=== PATIENT | female | born 1945 | race Caucasian/White ===

== ENCOUNTER 2024-01-01 14:12 | Inpatient (IN) | payer MEDICARE, OTHER ==
[~2024-01-01] VITALS: Ht 162.6 cm; Wt 72.7 kg
[2024-01-01] VITALS (7 sets, daily range): BP systolic 103; BP diastolic 66; PULSE 75–140; RESP 16–36; TEMP 98.3; O2SAT 97–100
[2024-01-01] MEDS ORDERED: cefTRIAXone 1,000 MG VIAL ONE (15:03)
[2024-01-01 15:34] LABS: APPEARANCE,URINE SLIGHTLY HAZY (CLEAR); BILIRUBIN,URINE NEGATIVE (NEGATIVE); BLOOD, URINE 2+ (NEGATIVE); COLOR,URINE YELLOW (YELLOW); LEUKOCYTE ESTERASE ,URINE TRACE (NEGATIVE); NITRITE, URINE NEGATIVE (NEGATIVE); PROTEIN,URINE 2+ (NEGATIVE); UGLUCOSE NEGATIVE (NEGATIVE); UROBILINOGEN,URINE 0.2 EU/dL (0.2 - 1)
[2024-01-01 15:36] LABS: BACTERIA,URINE 1+ /HPF (None Seen); MUCUS,URINE None Seen /LPF (None Seen); SQUAMOUS EPITHELIAL CELL,UR 0-3 (FEW) /LPF (0-3 (FEW)); WBC,URINE 0-5 /HPF (0-5)
[2024-01-01] MEDS: NACL 0.9% 2,000 ML IV ONE (16:28)
[2024-01-01 16:36] LABS: BASOPHILS % (AUTO) 0.2 % (0.0-2.0); HEMATOCRIT 28.3 % (36-48); HEMOGLOBIN 8.4 g/dL (12.0-16.0); LYMPHOCYTES # (AUTO) 0.6 K/uL (2.5-16.5); LYMPHOCYTES % (AUTO) 3.5 % (20.5-51.1); MEAN CORPUSCULAR HEMOGLOBIN 25 pg (27-31); MEAN CORPUSCULAR HGB CONC 30 g/dL (33-37); MEAN CORPUSCULAR VOLUME 83.8 fL (80-94); MONOCYTES # (AUTO) 1.4 K/uL (0.8-1.0); MONOCYTES % (AUTO) 7.7 % (1.7-9.3); NEUTROPHILS # (AUTO) 15.7 K/uL (1.8-7.7); NEUTROPHILS % (AUTO) 88.6 % (42.2-75.2); PLATELET COUNT (AUTO) 418 K/uL (140-450); RED BLOOD CELL COUNT(AUTO) 3.38 MIL/uL (4.20-5.40); RED CELL DISTRIBUTION WIDTH 20.8 % (11.6-13.7); WHITE BLOOD COUNT (AUTO) 17.8 K/uL (4.8-10.8)
[2024-01-01 17:09] LABS: ANION GAP 20.6 (8-16); CALCIUM 9.4 mg/dL (8.5-10.1); CARBON DIOXIDE 21.6 mmol/L (21-32); CHLORIDE 101 mmol/L (98-107); CREATININE 1.8 mg/dL (0.6-1.3); GLUCOSE 333 mg/dL (74-106); SODIUM SERUM 137 mmol/L (136-145); UREA NITROGEN, BLOOD 51 mg/dL (7-18)
[2024-01-01 17:10] LABS: INR 1.34 (0.8-1.2); PARTIAL THROMBOPLASTIN TIME 32.5 secs (22-35.6); PROTHROMBIN TIME 13.9 secs (10.8-13.4)
[2024-01-01 17:12] LABS: POTASSIUM 6.2 mmol/L (3.5-5.1)
[2024-01-01 17:18] LABS: ALANINE AMINOTRANSFERASE 46 U/L (12-78); ALBUMIN 1.9 g/dL (3.4-5.0); ALKALINE PHOSPHATASE 124 U/L (50-136); ASPARTATE AMINOTRANSFERASE 99 U/L (15-37); BILIRUBIN,DIRECT 0.1 mg/dL (0.0-0.3); CREATINE KINASE, TOTAL 101 U/L (26-192); TOTAL BILIRUBIN 0.3 mg/dL (0.0-1.0); TOTAL PROTEIN, SERUM 8.4 g/dL (6.4-8.2)
[2024-01-01] MEDS ORDERED: ONDANSETRON 4 MG/2 ML VIAL IVP PRN (18:30)
[2024-01-01] MEDS ORDERED: DEXTROSE 50% 50 ML SYR IVP ONE (18:31)
[2024-01-01] MEDS ORDERED: CALCIUM CHLORIDE 10% 100 MG/ML SYR IVP ONE (18:31)
[2024-01-01] MEDS ORDERED: FUROSEMIDE 40 MG/4 ML VIAL IVP ONE (18:33)
[2024-01-01] MEDS ORDERED: SODIUM BICARBONATE 8.4% PFS 50 MEQ/50 ML SYR IVP ONE (18:34)
[2024-01-01] MEDS ORDERED: DEXTROSE 50% 50 ML SYR IVP PRN (18:35)
[2024-01-01] MEDS: CALCIUM CHLORIDE 10% 100 MG/ML SYR IVP ONE (18:43)
[2024-01-01] MEDS: SODIUM BICARBONATE 8.4% PFS 50 MEQ/50 ML SYR IVP ONE (18:47)
[2024-01-01] MEDS: DEXTROSE 50% 50 ML SYR IVP ONE (18:59)
[2024-01-01] MEDS: FUROSEMIDE 40 MG/4 ML VIAL IVP ONE (19:06)
[2024-01-01] MEDS: NACL 0.9% 1,000 ML IV SCH (19:10)
[2024-01-01] MEDS: INSULIN REGULAR, HUMAN 100 UNIT/ML VIAL IVP ONE (19:17)
[2024-01-01] MEDS: ALBUTEROL 0.083% 2.5 MG/3 ML NEBU INH ONE (19:47)
[2024-01-01] MEDS: ALBUTEROL SULFATE/IPRATROPIU 3 ML SOL IH SCH (19:47)
[2024-01-01] MEDS: PIPERACILLIN/TAZOBACTAM 3.375 GM in DEXTROSE 5% 50 ML IV SCH (22:00)
[2024-01-01] MEDS: BLOOD GLUCOSE MONITORING 1 DEV DEV FS SCH (22:00)
[2024-01-01] MEDS ORDERED: PIPERACILLIN/TAZOBACTAM 3.375 GM VIAL IV ONE (22:01)
[2024-01-01] MEDS: INSULIN LISPRO SLIDING SCALE 100 UNITS/ML VIAL SUBQ PRN (22:22)
[2024-01-01] MEDS ORDERED: FUROSEMIDE 40 MG/4 ML VIAL IVP SCH (22:55)
[2024-01-02] VITALS (14 sets, daily range): BP systolic 120–134; BP diastolic 57–62; PULSE 91–133; RESP 16–24; TEMP 96.7–99.2; O2SAT 99–100
[2024-01-02] MEDS: SODIUM ZIRCONIUM CYCLOSILICATE 10 GM POWD.PACK PO ONE (00:08)
[2024-01-02] MEDS: PIPERACILLIN/TAZOBACTAM 3.375 GM VIAL IV ONE (05:21)
[2024-01-02] MEDS ORDERED: AMIO100T3 GT (06:52)
[2024-01-02] MEDS ORDERED: DILT30TA18 GT (06:52)
[2024-01-02] MEDS ORDERED: INSU100S22 SUBQ (06:52)
[2024-01-02] MEDS ORDERED: METO25TE2 GT (06:52)
[2024-01-02] MEDS ORDERED: FURO-570 GT (06:52)
[2024-01-02] MEDS ORDERED: ATOR40TA PO (06:52)
[2024-01-02] MEDS ORDERED: FAMO-92 GT (06:52)
[2024-01-02] MEDS ORDERED: ALOG12.5 GT (06:52)
[2024-01-02 07:18] LABS: BASOPHILS % (AUTO) 0.4 % (0.0-2.0); EOSINOPHILS % (AUTO) 0.2 % (0.0-4.0); HEMATOCRIT 24.8 % (36-48); HEMOGLOBIN 7.8 g/dL (12.0-16.0); LYMPHOCYTES % (AUTO) 23.8 % (20.5-51.1); MEAN CORPUSCULAR HEMOGLOBIN 26 pg (27-31); MEAN CORPUSCULAR HGB CONC 31 g/dL (33-37); MEAN CORPUSCULAR VOLUME 81.4 fL (80-94); MONOCYTES # (AUTO) 0.5 K/uL (0.8-1.0); MONOCYTES % (AUTO) 5.8 % (1.7-9.3); NEUTROPHILS # (AUTO) 5.9 K/uL (1.8-7.7); NEUTROPHILS % (AUTO) 69.8 % (42.2-75.2); PLATELET COUNT (AUTO) 368 K/uL (140-450); RED BLOOD CELL COUNT(AUTO) 3.05 MIL/uL (4.20-5.40); RED CELL DISTRIBUTION WIDTH 20.8 % (11.6-13.7); WHITE BLOOD COUNT (AUTO) 8.4 K/uL (4.8-10.8)
[2024-01-02 07:42] LABS: CALCIUM 9.1 mg/dL (8.5-10.1); CARBON DIOXIDE 25.4 mmol/L (21-32); CHLORIDE 106 mmol/L (98-107); CREATININE 1.6 mg/dL (0.6-1.3); GLUCOSE 92 mg/dL (74-106); POTASSIUM 4.4 mmol/L (3.5-5.1); SODIUM SERUM 141 mmol/L (136-145); UREA NITROGEN, BLOOD 49 mg/dL (7-18)
[2024-01-02] MEDS: DILTIAZEM 30 MG TAB GT SCH (14:27)
[2024-01-02 20:06] LABS: BLOOD GAS PCO2 32.8 mmHg (35-45); BLOOD GAS PH 7.447 (7.35-7.45)
[2024-01-02 20:07] LABS: BLOOD GAS BASE EXCESS -1.6 mmol/L (-2.0-2.0); BLOOD GAS HCO3 22.1 mmol/L (22-26); BLOOD GAS O2 SAT% 99.5 % (92.0-98.5)
[2024-01-02] MEDS ORDERED: NON-FORMULARY ITEM (Famotidine* (Pepcid*) 40 MG) GT SCH (21:00)
[2024-01-02] MEDS: DILTIAZEM 25 MG/5 ML VIAL IVP ONE (22:12)
[2024-01-02] MEDS: ATORVASTATIN 20 MG TAB PO SCH (22:21)
[2024-01-03] VITALS (13 sets, daily range): BP systolic 108–124; BP diastolic 3–75; PULSE 103–142; RESP 16–22; TEMP 37; O2SAT 99–100
[2024-01-03] MEDS ORDERED: hydrALAZINE 20 MG/ML VIAL IVP PRN (03:25)
[2024-01-03 07:15] LABS: BASOPHILS % (AUTO) 0.6 % (0.0-2.0); EOSINOPHILS # (AUTO) 0.1 K/uL (0-0.4); EOSINOPHILS % (AUTO) 0.8 % (0.0-4.0); HEMATOCRIT 23.6 % (36-48); HEMOGLOBIN 7.4 g/dL (12.0-16.0); LYMPHOCYTES # (AUTO) 2.8 K/uL (2.5-16.5); LYMPHOCYTES % (AUTO) 36.3 % (20.5-51.1); MEAN CORPUSCULAR HEMOGLOBIN 26 pg (27-31); MEAN CORPUSCULAR HGB CONC 32 g/dL (33-37); MEAN CORPUSCULAR VOLUME 81.3 fL (80-94); MONOCYTES # (AUTO) 0.5 K/uL (0.8-1.0); MONOCYTES % (AUTO) 6.2 % (1.7-9.3); NEUTROPHILS # (AUTO) 4.3 K/uL (1.8-7.7); NEUTROPHILS % (AUTO) 56.1 % (42.2-75.2); PLATELET COUNT (AUTO) 393 K/uL (140-450); RED CELL DISTRIBUTION WIDTH 20.8 % (11.6-13.7); WHITE BLOOD COUNT (AUTO) 7.6 K/uL (4.8-10.8)
[2024-01-03 07:38] LABS: CALCIUM 8.4 mg/dL (8.5-10.1); CARBON DIOXIDE 24.8 mmol/L (21-32); CHLORIDE 109 mmol/L (98-107); CREATININE 1.6 mg/dL (0.6-1.3); GLUCOSE 88 mg/dL (74-106); POTASSIUM 3.8 mmol/L (3.5-5.1); SODIUM SERUM 144 mmol/L (136-145); UREA NITROGEN, BLOOD 42 mg/dL (7-18)
[2024-01-03] MEDS: FUROSEMIDE 40 MG TAB GT SCH (08:43)
[2024-01-03] MEDS: AMIODARONE 200 MG TAB GT SCH (08:43)
[2024-01-03] MEDS ORDERED: NON-FORMULARY ITEM (Amiodarone HCl (Amiodarone Hcl) 200 MG) GT/PO SCH (09:00)
[2024-01-04] VITALS (15 sets, daily range): BP systolic 111–149; BP diastolic 52–99; PULSE 62–198; RESP 18–25; TEMP 97.4–99; O2SAT 95–100
[2024-01-04 07:03] LABS: EOSINOPHILS # (AUTO) 0.1 K/uL (0-0.4); MONOCYTES # (AUTO) 0.5 K/uL (0.8-1.0); NEUTROPHILS # (AUTO) 3.3 K/uL (1.8-7.7)
[2024-01-04 07:11] LABS: ANION GAP 11.8 (8-16); CALCIUM 8.6 mg/dL (8.5-10.1); CARBON DIOXIDE 25.7 mmol/L (21-32); CHLORIDE 109 mmol/L (98-107); CREATININE 1.6 mg/dL (0.6-1.3); GLUCOSE 100 mg/dL (74-106); POTASSIUM 3.5 mmol/L (3.5-5.1); SODIUM SERUM 143 mmol/L (136-145); UREA NITROGEN, BLOOD 33 mg/dL (7-18)
[2024-01-04 07:22] LABS: BASOPHILS % (AUTO) 0.7 % (0.0-2.0); EOSINOPHILS % (AUTO) 1.2 % (0.0-4.0); HEMATOCRIT 23.6 % (36-48); HEMOGLOBIN 7.4 g/dL (12.0-16.0); LYMPHOCYTES # (AUTO) 2.4 K/uL (2.5-16.5); LYMPHOCYTES % (AUTO) 37.8 % (20.5-51.1); MEAN CORPUSCULAR HEMOGLOBIN 26 pg (27-31); MEAN CORPUSCULAR HGB CONC 31 g/dL (33-37); MEAN CORPUSCULAR VOLUME 81.5 fL (80-94); MONOCYTES % (AUTO) 7.5 % (1.7-9.3); NEUTROPHILS % (AUTO) 52.8 % (42.2-75.2); PLATELET COUNT (AUTO) 363 K/uL (140-450); RED BLOOD CELL COUNT(AUTO) 2.89 MIL/uL (4.20-5.40); RED CELL DISTRIBUTION WIDTH 20.5 % (11.6-13.7); WHITE BLOOD COUNT (AUTO) 6.2 K/uL (4.8-10.8)
[2024-01-04] MEDS: AMIODARONE 200 MG TAB GT SCH (12:18)
[2024-01-04] MEDS: NACL 0.9% 1,000 ML IV SCH (14:50)
[2024-01-04] MEDS: AMIODARONE 150 MG in DEXTROSE 5% 100 ML IV SCH (20:15)
[2024-01-04] MEDS: AMIODARONE 450 MG in DEXTROSE 5% 250 ML IV SCH (20:44)
[2024-01-04] MEDS: AMIODARONE 450 MG/9 ML VIAL IV ONE (21:20)
[2024-01-05] VITALS (23 sets, daily range): BP systolic 118–151; BP diastolic 37–93; PULSE 20–177; RESP 17–24; TEMP 96.8–98.5; O2SAT 94–100
[2024-01-05] MEDS ORDERED: Z-GUARD PASTE TP PRN (03:15)
[2024-01-05] MEDS: AMIODARONE 450 MG/9 ML VIAL IV ONE (05:05)
[2024-01-05 06:18] LABS: BASOPHILS % (AUTO) 0.4 % (0.0-2.0); EOSINOPHILS # (AUTO) 0.1 K/uL (0-0.4); EOSINOPHILS % (AUTO) 0.8 % (0.0-4.0); HEMOGLOBIN 7.7 g/dL (12.0-16.0); LYMPHOCYTES # (AUTO) 2.5 K/uL (2.5-16.5); MEAN CORPUSCULAR HEMOGLOBIN 26 pg (27-31); MEAN CORPUSCULAR HGB CONC 32 g/dL (33-37); MEAN CORPUSCULAR VOLUME 80.4 fL (80-94); MONOCYTES # (AUTO) 0.4 K/uL (0.8-1.0); MONOCYTES % (AUTO) 5.7 % (1.7-9.3); NEUTROPHILS # (AUTO) 3.8 K/uL (1.8-7.7); NEUTROPHILS % (AUTO) 56.1 % (42.2-75.2); PLATELET COUNT (AUTO) 364 K/uL (140-450); RED BLOOD CELL COUNT(AUTO) 2.99 MIL/uL (4.20-5.40); RED CELL DISTRIBUTION WIDTH 20.8 % (11.6-13.7); WHITE BLOOD COUNT (AUTO) 6.8 K/uL (4.8-10.8)
[2024-01-05 06:55] LABS: CALCIUM 8.6 mg/dL (8.5-10.1); CARBON DIOXIDE 24.3 mmol/L (21-32); CHLORIDE 104 mmol/L (98-107); CREATININE 1.5 mg/dL (0.6-1.3); GLUCOSE 147 mg/dL (74-106); POTASSIUM 3.3 mmol/L (3.5-5.1); SODIUM SERUM 140 mmol/L (136-145); UREA NITROGEN, BLOOD 27 mg/dL (7-18)
[2024-01-05] MEDS: POTASSIUM CHLORIDE 20% 40 MEQ/15 ML UDC GT ONE (08:16)
[2024-01-05] MEDS: MAG SULF 2000 MG/WATER PREMIX 50 ML IV ONE (23:46)
[2024-01-06] VITALS (13 sets, daily range): BP systolic 110–136; BP diastolic 52–86; PULSE 18–120; RESP 18–22; TEMP 97.4–98.2; O2SAT 94–100
[2024-01-07] VITALS (18 sets, daily range): BP systolic 117–140; BP diastolic 54–74; PULSE 63–131; RESP 18–26; TEMP 97.1–98.8; O2SAT 96–100
[2024-01-07 07:22] LABS: BASOPHILS % (AUTO) 0.2 % (0.0-2.0); EOSINOPHILS # (AUTO) 0.1 K/uL (0-0.4); HEMOGLOBIN 7.9 g/dL (12.0-16.0); LYMPHOCYTES # (AUTO) 2.7 K/uL (2.5-16.5); LYMPHOCYTES % (AUTO) 40.9 % (20.5-51.1); MEAN CORPUSCULAR HEMOGLOBIN 26 pg (27-31); MEAN CORPUSCULAR HGB CONC 32 g/dL (33-37); MEAN CORPUSCULAR VOLUME 81.6 fL (80-94); MONOCYTES # (AUTO) 0.4 K/uL (0.8-1.0); MONOCYTES % (AUTO) 5.9 % (1.7-9.3); NEUTROPHILS # (AUTO) 3.4 K/uL (1.8-7.7); PLATELET COUNT (AUTO) 330 K/uL (140-450); RED BLOOD CELL COUNT(AUTO) 3.07 MIL/uL (4.20-5.40); RED CELL DISTRIBUTION WIDTH 20.9 % (11.6-13.7); WHITE BLOOD COUNT (AUTO) 6.5 K/uL (4.8-10.8)
[2024-01-07 07:26] LABS: ANION GAP 11.5 (8-16); CALCIUM 8.6 mg/dL (8.5-10.1); CARBON DIOXIDE 26.4 mmol/L (21-32); CHLORIDE 105 mmol/L (98-107); CREATININE 1.4 mg/dL (0.6-1.3); GLUCOSE 142 mg/dL (74-106); POTASSIUM 3.9 mmol/L (3.5-5.1); SODIUM SERUM 139 mmol/L (136-145); UREA NITROGEN, BLOOD 26 mg/dL (7-18)
[2024-01-07] MEDS: PIPERACILLIN/TAZOBACTAM 3.375 GM in DEXTROSE 5% 50 ML IV SCH (12:37)
[2024-01-07] MEDS ORDERED: GAUZE TP PRN (15:50)
[2024-01-07] MEDS ORDERED: FOAM DRESSING TP PRN (15:50)
[2024-01-07] MEDS ORDERED: ALGINATE DRESSING MC PRN (15:50)
[2024-01-07] MEDS: ALGINATE DRESSING MC SCH (17:35)
[2024-01-07] MEDS: FOAM DRESSING TP SCH (17:35)
[2024-01-08] VITALS (15 sets, daily range): BP systolic 100–133; BP diastolic 51–97; PULSE 65–124; RESP 17–21; TEMP 96.6–98.9; O2SAT 92–100
[2024-01-08] MEDS: GAUZE TP SCH (13:00)
[2024-01-08] MEDS ORDERED: BACTRIM IV PER PHARMACY MC PRN (21:10)
[2024-01-08] MEDS ORDERED: COMMUNICATION ORDER MC PRN (21:25)
[2024-01-08] MEDS: SULFAMETH IV SCH (22:32)
[2024-01-08] MEDS: DEXTROSE 5% IV SCH (22:32)
[2024-01-08] MEDS: SULFAMETH/TRIMETH 80/16MG-ML 10 ML VIAL IV ONE (22:32)
[2024-01-08] MEDS: TRIMETH IV SCH (22:32)
[2024-01-09] VITALS (14 sets, daily range): BP systolic 100–138; BP diastolic 47–64; PULSE 60–124; RESP 18–21; TEMP 96.6–98.5; O2SAT 95–100
[2024-01-09] MEDS: PANTOPRAZOLE 40 MG INJ VIAL IVP SCH (09:29)
[2024-01-09] MEDS: SODIUM CHLORIDE IV SCH ×2 (12:20→23:52)
[2024-01-09] MEDS: CEFTAZIDIME IV SCH ×2 (12:20→23:52)
[2024-01-09] MEDS: AVIBACTAM IV SCH ×2 (12:20→23:52)
[2024-01-10] VITALS (16 sets, daily range): BP systolic 96–125; BP diastolic 56–69; PULSE 82–116; RESP 18–22; TEMP 96.6–98.9; O2SAT 97–100
[2024-01-10] MEDS: ASPIRIN 81 MG TAB.CHEW PO SCH (09:37)
[2024-01-11] VITALS (18 sets, daily range): BP systolic 104–127; BP diastolic 49–76; PULSE 64–129; RESP 18–25; TEMP 96.3–99; O2SAT 96–100
[2024-01-12] VITALS (17 sets, daily range): BP systolic 86–129; BP diastolic 45–63; PULSE 74–144; RESP 18–21; TEMP 95.7–98.4; O2SAT 95–100
[2024-01-12 07:09] LABS: BASOPHILS % (AUTO) 0.3 % (0.0-2.0); EOSINOPHILS # (AUTO) 0.1 K/uL (0-0.4); EOSINOPHILS % (AUTO) 0.9 % (0.0-4.0); HEMATOCRIT 24.8 % (36-48); LYMPHOCYTES # (AUTO) 2.6 K/uL (2.5-16.5); LYMPHOCYTES % (AUTO) 38.5 % (20.5-51.1); MEAN CORPUSCULAR HEMOGLOBIN 26 pg (27-31); MEAN CORPUSCULAR HGB CONC 32 g/dL (33-37); MEAN CORPUSCULAR VOLUME 80.5 fL (80-94); MONOCYTES # (AUTO) 0.4 K/uL (0.8-1.0); MONOCYTES % (AUTO) 5.6 % (1.7-9.3); NEUTROPHILS # (AUTO) 3.6 K/uL (1.8-7.7); NEUTROPHILS % (AUTO) 54.7 % (42.2-75.2); PLATELET COUNT (AUTO) 335 K/uL (140-450); RED BLOOD CELL COUNT(AUTO) 3.08 MIL/uL (4.20-5.40); RED CELL DISTRIBUTION WIDTH 21.6 % (11.6-13.7); WHITE BLOOD COUNT (AUTO) 6.7 K/uL (4.8-10.8)
[2024-01-12 07:37] LABS: ALANINE AMINOTRANSFERASE 18 U/L (12-78); ALBUMIN 2.4 g/dL (3.4-5.0); ALKALINE PHOSPHATASE 73 U/L (50-136); ANION GAP 11.6 (8-16); ASPARTATE AMINOTRANSFERASE 18 U/L (15-37); CALCIUM 8.8 mg/dL (8.5-10.1); CARBON DIOXIDE 29.8 mmol/L (21-32); CHLORIDE 99 mmol/L (98-107); CREATININE 1.9 mg/dL (0.6-1.3); GLUCOSE 117 mg/dL (74-106); POTASSIUM 4.4 mmol/L (3.5-5.1); SODIUM SERUM 136 mmol/L (136-145); TOTAL BILIRUBIN 0.2 mg/dL (0.0-1.0); TOTAL PROTEIN, SERUM 7.7 g/dL (6.4-8.2); UREA NITROGEN, BLOOD 30 mg/dL (7-18)
[2024-01-12] MEDS ORDERED: KCL 20 MEQ IN 100 mL PREMIX 100 ML IV ONE (11:40)
[2024-01-13] VITALS (14 sets, daily range): BP systolic 112–126; BP diastolic 45–75; PULSE 50–130; RESP 18–25; TEMP 96.9–98.1; O2SAT 98–100
[2024-01-13] MEDS ORDERED: POTASSIUM CHLORIDE 20% 40 MEQ/15 ML UDC PO ONE (00:15)
[2024-01-13 07:23] LABS: BASOPHILS % (AUTO) 0.5 % (0.0-2.0); EOSINOPHILS # (AUTO) 0.1 K/uL (0-0.4); EOSINOPHILS % (AUTO) 1.2 % (0.0-4.0); HEMATOCRIT 24.6 % (36-48); HEMOGLOBIN 7.9 g/dL (12.0-16.0); LYMPHOCYTES # (AUTO) 2.3 K/uL (2.5-16.5); LYMPHOCYTES % (AUTO) 40.9 % (20.5-51.1); MEAN CORPUSCULAR HEMOGLOBIN 26 pg (27-31); MEAN CORPUSCULAR HGB CONC 32 g/dL (33-37); MEAN CORPUSCULAR VOLUME 80.8 fL (80-94); MONOCYTES # (AUTO) 0.4 K/uL (0.8-1.0); MONOCYTES % (AUTO) 6.7 % (1.7-9.3); NEUTROPHILS # (AUTO) 2.8 K/uL (1.8-7.7); NEUTROPHILS % (AUTO) 50.7 % (42.2-75.2); PLATELET COUNT (AUTO) 321 K/uL (140-450); RED BLOOD CELL COUNT(AUTO) 3.04 MIL/uL (4.20-5.40); RED CELL DISTRIBUTION WIDTH 21.5 % (11.6-13.7); WHITE BLOOD COUNT (AUTO) 5.5 K/uL (4.8-10.8)
[2024-01-13] MEDS: METOPROLOL 5 MG/5 ML VIAL IV SCH (09:38)
[2024-01-13] MEDS: DIGOXIN 0.25 MG/ML AMP IV SCH ×2 (11:56→18:04)
[2024-01-13] MEDS: NACL 0.9% 1,000 ML IV SCH (11:57)
[2024-01-13] MEDS: BLOOD GLUCOSE MONITORING 1 DEV DEV FS SCH (12:19)
[2024-01-13] MEDS: DILTIAZEM 60 MG TAB PO SCH (13:48)
[2024-01-13] MEDS ORDERED: BACTRIM IV PER PHARMACY MC PRN (14:20)
[2024-01-13] MEDS: DEXTROSE 5% IV SCH (22:15)
[2024-01-13] MEDS: SULFAMETH IV SCH (22:15)
[2024-01-13] MEDS: TRIMETH IV SCH (22:15)
[2024-01-14] VITALS (14 sets, daily range): BP systolic 98–115; BP diastolic 49–64; PULSE 53–88; RESP 18–25; TEMP 97.4–98.4; O2SAT 97–100
[2024-01-14] MEDS: DIGOXIN 0.25 MG/ML AMP IV SCH
[2024-01-14 06:45] LABS: BASOPHILS % (AUTO) 0.4 % (0.0-2.0); EOSINOPHILS # (AUTO) 0.1 K/uL (0-0.4); EOSINOPHILS % (AUTO) 1.3 % (0.0-4.0); HEMOGLOBIN 8.4 g/dL (12.0-16.0); LYMPHOCYTES # (AUTO) 2.4 K/uL (2.5-16.5); LYMPHOCYTES % (AUTO) 38.4 % (20.5-51.1); MEAN CORPUSCULAR HEMOGLOBIN 25 pg (27-31); MEAN CORPUSCULAR HGB CONC 31 g/dL (33-37); MEAN CORPUSCULAR VOLUME 81.3 fL (80-94); MONOCYTES # (AUTO) 0.3 K/uL (0.8-1.0); MONOCYTES % (AUTO) 5.6 % (1.7-9.3); NEUTROPHILS # (AUTO) 3.4 K/uL (1.8-7.7); NEUTROPHILS % (AUTO) 54.3 % (42.2-75.2); PLATELET COUNT (AUTO) 311 K/uL (140-450); RED BLOOD CELL COUNT(AUTO) 3.31 MIL/uL (4.20-5.40); RED CELL DISTRIBUTION WIDTH 21.4 % (11.6-13.7); WHITE BLOOD COUNT (AUTO) 6.2 K/uL (4.8-10.8)
[2024-01-14 07:09] LABS: ALANINE AMINOTRANSFERASE 15 U/L (12-78); ALBUMIN 2.4 g/dL (3.4-5.0); ALKALINE PHOSPHATASE 70 U/L (50-136); ANION GAP 10.1 (8-16); ASPARTATE AMINOTRANSFERASE 17 U/L (15-37); CARBON DIOXIDE 27.7 mmol/L (21-32); CHLORIDE 101 mmol/L (98-107); CREATININE 1.8 mg/dL (0.6-1.3); GLUCOSE 140 mg/dL (74-106); MAGNESIUM 1.8 mg/dL (1.8-2.4); PHOSPHORUS 3.6 mg/dL (2.5-4.9); POTASSIUM 4.8 mmol/L (3.5-5.1); SODIUM SERUM 134 mmol/L (136-145); TOTAL BILIRUBIN 0.2 mg/dL (0.0-1.0); TOTAL PROTEIN, SERUM 7.5 g/dL (6.4-8.2); UREA NITROGEN, BLOOD 35 mg/dL (7-18)
[2024-01-14] MEDS ORDERED: SULF-954 PO (12:59)
== END 2024-01-14 19:45 | DRG 870 ==
LOC: MED 14:12 → MTU 18:32 → MIC 01-04 20:07 → MTU 01-05 21:40
PROVIDERS: ADMIT Student in an Organized Health Care Education/Training Program; ATTEND Student in an Organized Health Care Education/Training Program
PROC: 5A1955Z Respiratory Ventilation, Greater than 96 Consecutive Hours (ICD-10-PCS; principal; 2024-01-01)
DX: A41.9 Sepsis, unspecified organism (principal); J15.69 Pneumonia due to other Gram-negative bacteria; J96.21 Acute and chronic respiratory failure with hypoxia; E43 Unspecified severe protein-calorie malnutrition; N17.9 Acute kidney failure, unspecified; Z99.11 Dependence on respirator [ventilator] status; E78.5 Hyperlipidemia, unspecified; I12.9 Hypertensive chronic kidney disease with stage 1 through stage 4 chronic kidney disease, or unspecified chronic kidney disease; I48.91 Unspecified atrial fibrillation; E11.22 Type 2 diabetes mellitus with diabetic chronic kidney disease; N18.9 Chronic kidney disease, unspecified; Z79.51 Long term (current) use of inhaled steroids; Z79.899 Other long term (current) drug therapy; Z79.4 Long term (current) use of insulin; Z68.27 Body mass index [BMI] 27.0-27.9, adult; Z93.0 Tracheostomy status
CPT/HCPCS: 36415; 36600; 71045; 80048; 80053; 80076; 81001; 82550; 82803; 82948; 83605; 83735; 83880; 84100; 84484; 85025; 85610; 85730; 87040; 87070; 87081; 87086; 87186; 87205; 93005; 94003; 94640; 96361; 96365; 96375; 99291; J0282; J0360; J0696; J1160; J1644; J1815; J1940; J2470; J2543; J3475; J3490; J7030; J7060; Q0092